=== PATIENT | male | born 1955 | race Caucasian/White ===

== ENCOUNTER 2018-09-14 13:21 | Inpatient (IN) | payer OTHER ==
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
[2018-09-14 14:05] LABS: PLATELET COUNT 233 10^3/uL (150-400)
--- NOTE | 2018-09-14 14:18 | CPEKG ---
Test Reason : OPEN Blood Pressure : / mmHG Vent. Rate : 090 BPM Atrial Rate : 090 BPM P-R Int : 150 ms QRS Dur : 106 ms QT Int : 358 ms P-R-T Axes : 063 047 016 degrees QTc Int : 438 ms Sinus rhythm Confirmed by Noemy Baum ([id number]) on 09/14/2018 2:18:12 PM Referred By: Confirmed By:Noemy Baum
[2018-09-14] MEDS ORDERED: ceFAZolin 2 GM/DEXTROSE 100 ML IV ONE (14:48)
[2018-09-14] MEDS ORDERED: oxyCODONE IR 5 MG TAB PO PRN (14:48)
[2018-09-14] MEDS ORDERED: HEPARIN 10,000 UNIT/10 ML MDV (1,000 UNIT/ML) IVP ONE (14:48)
[2018-09-14] MEDS ORDERED: ONDANSETRON DISINTEGRATING 4 MG TAB PO PRN (14:48)
[2018-09-14] MEDS ORDERED: ONDANSETRON 4 MG/2 ML VIAL IVP PRN (14:48)
[2018-09-14] MEDS ORDERED: HEPARIN/DEXTROSE 500 ML IV ONE (14:48)
[2018-09-14] MEDS ORDERED: ACETAMINOPHEN 325 MG TAB PO PRN (14:48)
[2018-09-14] MEDS ORDERED: CEFAZOLIN 1 GM/DEXTROSE/50 ML BAG IV ONE (14:55)
[2018-09-14 15:03] LABS: INR 0.9 (0.83-1.16); PROTIME(PATIENT) 12.4 SEC (12.0-15.0)
--- NOTE | 2018-09-14 15:03 | PDGENHP ---
History and Physical - Chief Complaint L Leg Swelling - History of Present Illness Vinod Hoang is a 63 yo male with a PMHx of tobacco abuse, alcohol abuse who presents to [facility] for LLE swelling. He reports that swelling in LLE started approximately 4 days ago. He denies any travel but does state that he spends most time in his chair at home. He also reports he believes he scraped the lateral side of his L calf a few days ago. He has had increased warmth and redness in that area. He denies any chest pain, shortness of breath, hemoptysis , f/c, d/c, n/v. History Information - Allergies/Home Medication List Allergies/Adverse Reactions: No Known Allergies Allergy (Unverified 01/25/10 11:03) Home Medications: Marijuana 09/14/18 [Last Taken Unknown] I have personally reviewed and updated: family history, medical history, social history, surgical history - Past Medical History no pertinent PMH - Surgical History Reports: no pertinent surgical hx - Family History Positive for: non-pertinent Additional family history: No hx of DVTs in parents - Social History Smoking Status: Heavy smoker Alcohol Use: Heavy Review of Systems Review of Systems: ROS: 10pt was reviewed & negative except for what was stated in HPI & below Physical Exam Physical Exam: Temp Pulse Resp BP Pulse Ox 36.8 C 95 16 122/80 H 92 09/14/18 13:25 09/14/18 14:58 09/14/18 14:58 09/14/18 14:58 09/14/18 14:58 Constitutional: unkempt Eyes: PERRL Ears, Nose, Mouth, Throat: moist mucous membranes Cardiovascular: regular rate and rhythym, no murmur, rub, or gallop, edema (LLE 2+) Respiratory: no respiratory distress, clear to auscultation Gastrointestinal: soft, non-tender abdomen Genitourinary: no bladder tenderness Skin: warm, erythema Musculoskeletal: pain with ROM Neurologic: AAOx3 Psychiatric: interacting appropriately Lymph, Heme, Immunologic: No ecchymoses, No petechiae Lab Data & Imaging Review 09/14/18 13:45 09/14/18 13:45 WBC 10.69 10^3/uL (3.80-9.50) H 09/14/18 13:45 RBC 4.99 10^6/uL (4.40-6.38) 09/14/18 13:45 Hgb 17.4 g/dL (13.7-17.5) 09/14/18 13:45 Hct 51.5 % (40.0-51.0) H 09/14/18 13:45 MCV 103.2 fL (81.5-99.8) H 09/14/18 13:45 MCH 34.9 pg (27.9-34.1) H 09/14/18 13:45 MCHC 33.8 g/dL (32.4-36.7) 09/14/18 13:45 RDW 13.2 % (11.5-15.2) 09/14/18 13:45 Plt Count 233 10^3/uL (150-400) 09/14/18 13:45 MPV 9.4 fL (8.7-11.7) 09/14/18 13:45 Neut % (Auto) 68.5 % (39.3-74.2) 09/14/18 13:45 Lymph % (Auto) 18.6 % (15.0-45.0) 09/14/18 13:45 [place] % (Auto) 10.5 % (4.5-13.0) 09/14/18 13:45 Eos % (Auto) 1.3 % (0.6-7.6) 09/14/18 13:45 Baso % (Auto) 0.4 % (0.3-1.7) 09/14/18 13:45 Nucleat RBC Rel Count 0.0 % (0.0-0.2) 09/14/18 13:45 Absolute Neuts (auto) 7.33 10^3/uL (1.70-6.50) H 09/14/18 13:45 Absolute Lymphs (auto) 1.99 10^3/uL (1.00-3.00) 09/14/18 13:45 Absolute Monos (auto) 1.12 10^3/uL (0.30-0.80) H 09/14/18 13:45 Absolute Eos (auto) 0.14 10^3/uL (0.03-0.40) 09/14/18 13:45 Absolute Basos (auto) 0.04 10^3/uL (0.02-0.10) 09/14/18 13:45 Absolute Nucleated RBC 0.00 10^3/uL (0-0.01) 09/14/18 13:45 Immature Gran % 0.7 % (0.0-1.1) 09/14/18 13:45 Immature Gran # 0.07 10^3/uL (0.00-0.10) 09/14/18 13:45 Sodium 140 mEq/L (135-145) 09/14/18 13:45 Potassium 3.6 mEq/L (3.3-5.0) 09/14/18 13:45 Chloride 101 mEq/L (97-110) 09/14/18 13:45 Carbon Dioxide 29 mEq/l (22-31) 09/14/18 13:45 Anion Gap 10 mEq/L (6-14) 09/14/18 13:45 BUN 19 mg/dL (7-23) 09/14/18 13:45 Creatinine 0.6 mg/dL (0.7-1.3) L 09/14/18 13:45 Estimated GFR > 60 09/14/18 13:45 Glucose 97 mg/dL (70-100) 09/14/18 13:45 Calcium 9.2 mg/dL (8.5-10.4) 09/14/18 13:45 POC Troponin I 0.01 ng/mL (0.00-0.08) 09/14/18 13:27 Assessment & Plan Assessment: Deep vein thrombosis (DVT) of left lower extremity (Acute) - 4 days of LLE swelling, reports lifestyle is sedentary - LLE U/S shows intraluminal thrombus involving entire L leg extending from calf veins through popliteal, femoral, common femoral - Started on Heparin gtt in ED, will continue - Radiology to discuss with IR for possible thrombolysis given extensive nature of clot, will f/u recommendations - Plan to transition to Lovenox vs. oral AC pending IR intervention, clinical improvement Left leg cellulitis (Acute) - Reports he scarped leg, area of increased erythema on lateral aspect of L calf - Denies f/c, WBC 10.69 on admission - Started on Ancef in ED, will continue for now - Blood cultures collected in ED, f/u results - Can likely transition to PO abx in next 24-48 hours if clinical improvement Alcohol Abuse - Reports drinking 2, 40 ounce beers daily, has not drank in 3 days - Will order CIWA protocol given alcohol hx Tobacco Abuse - Smokes a pipe and 2 cigarettes daily - Patient does not want nicotine replacement at this time FEN: PRN, NPO pending IR DVT PPx: Heparin gtt Code: FULL Dispo: Admit to Medicine
[2018-09-14] MEDS ORDERED: FLUMAZENIL 0.5 MG/5 ML MDV IVP PRN ×2 (15:39→17:47)
[2018-09-14] MEDS ORDERED: LORazepam 1 MG TAB PO PRN (15:39)
--- NOTE | 2018-09-14 16:27 | PDMN ---
Medical Necessity Medical necessity: MCG M350 DVT of LE and M70 Cellulitis: 63 yo w/ acute DVT LLE , U/S shows intraluminal thrombus involving entire L leg extending from calf veins through popliteal, femoral, common femoral. heparin gtt started, IR consulted for possible thrombolysis given extensive nature of clot. Pt w/ acute LLE cellulitis, elevated WBC, IV antibx started, BC pending. Hx etoh and tobacco abuse. CIWA protocol ordered as precaution. NPO status for now. IP status anticipate>2MN for ongoing monitoring and tx of above.
[2018-09-14] MEDS ORDERED: HEPARIN/DEXTROSE 500 ML IV SCH ×3 (17:00→18:15)
[2018-09-14] MEDS ORDERED: HEPARIN 10,000 UNIT/10 ML MDV (1,000 UNIT/ML) IVP PRN ×2 (17:13→17:47)
--- NOTE | 2018-09-14 17:41 | PDPROPOC ---
Sedation Plan of Care Sedation Plan of Care: vital signs stable, mental status noted, patient educated of risks, benefits, alternatives, patient can tolerate sedation ASA Classification: ASA 3 Planned drugs: fentanyl, midazolam Mallampati Score: Class 1 Mallampati Reference Image: Patient passed 3-3-2 rule?: Yes
[2018-09-14] MEDS ORDERED: NALOXONE HCL 0.4 MG/ML INJ ONE (17:42)
--- NOTE | 2018-09-14 17:42 | PDHPUP ---
History & Physical Update H&P update statement: This history and physical update is based on an assessment of the patient which was completed after admission or registration (within 24 hours), but prior to the surgery/procedure. Massive LLE DVT, plan for catheter directed thrombolysis. H&P update: H&P reviewed & patient examined, no change in patient's condition since H&P completed H&P changes: No contraindications to anticoagulation
[2018-09-14] MEDS ORDERED: MIDAZOLAM 2 MG/2 ML VIAL ONE (17:43)
[2018-09-14] MEDS ORDERED: fentaNYL 100 MCG/2 ML INJ ONE ×2 (17:43)
[2018-09-14] MEDS ORDERED: NALOXONE HCL 0.4 MG/ML INJ IVP PRN (17:47)
[2018-09-14] MEDS ORDERED: PROTAMINE SULFATE 50 MG/5 ML VIAL IVP PRN (17:47)
[2018-09-14] MEDS ORDERED: fentaNYL 100 MCG/2 ML INJ IVP PRN (17:47)
[2018-09-14] MEDS ORDERED: MIDAZOLAM 2 MG/2 ML VIAL IVP PRN (17:47)
[2018-09-14] MEDS ORDERED: GLUCAGON HCL 1 MG VIAL IVP PRN (17:47)
[2018-09-14] MEDS ORDERED: MEPERIDINE 25 MG/ML SYR IVP PRN (17:47)
[2018-09-14] MEDS ORDERED: ALTEPLASE 2 MG VIAL IVP PRN (17:47)
[2018-09-14] MEDS ORDERED: IOPAMIDOL (ISOVUE-300) 100 ML BTL ONE (17:57)
[2018-09-14] MEDS ORDERED: ALTEPLASE 5 MG in NS 100 ML IV ONE (18:15)
--- NOTE | 2018-09-14 18:19 | PDRADPN ---
Radiology Procedure Note Date of Procedure: 09/14/18 Radiologist: Chris Rutherford Anesthesia: IV Sedation Pre-op Diagnosis: LLE DVT Post-op Diagnosis: LLE DVT Indication: Massive DVT, free floating thrombus Procedure: Catheter directed thrombolysis/EKOS ultrasound assisted Finding(s): Iliofemoral DVT with initiation of EKOS thrombolysis Inf/Abcess present in the surg proc area at time of surgery?: No
[2018-09-14] MEDS: THIAMINE HCL 500 MG in NS 100 ML IV SCH (19:09)
[2018-09-14] MEDS: ceFAZolin 2 GM/DEXTROSE 100 ML IV SCH (23:10)
[2018-09-15] MEDS: ALTEPLASE IV SCH ×3 (00:31→13:41)
[2018-09-15] MEDS: NS IV SCH ×3 (00:31→13:41)
[2018-09-15 01:30] LABS: PLATELET COUNT 168 10^3/uL (150-400)
[2018-09-15] MEDS: ceFAZolin 2 GM/DEXTROSE 100 ML IV SCH ×3 (06:10→21:54)
[2018-09-15] MEDS: THIAMINE HCL 500 MG in NS 100 ML IV SCH (09:51)
--- NOTE | 2018-09-15 16:33 | ASMTCMCOM ---
CM Note CM Note Notes: 63yo male admitted for DVT, L leg cellulitis. He has a Hx of tobacco use, ETOH abuse. He also uses THC. He has been interested in going home, concerned financially. Was found that his income is to high for Medicaid but Financial Services can help him apply for CICP as a seconary ins. Patient lives alone. 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 He reported to [employer] that he was also depressed. Therapies to eval for discharge needs. Date Signed: 09/15/2018 04:32 PM Electronically Signed By:Yulia Quinonez LCSW
--- NOTE | 2018-09-15 16:45 | ASDISCHSUM ---
Discharge Information Plan Status:Home with No Needs Medically Cleared to Leave:09/15/2018 Discharge Date:09/15/2018 CM D/C Disposition:Home, Routine, Self-Care ADT D/C Disposition:Home, Routine, Self-Care Projected Discharge Date:09/15/2018 06:00 PM Transportation at D/C: Discharge Delay Reason: Follow-Up Date:09/15/2018 06:00 PM Discharge Slot:2 - 12:01 pm - 18:00 pm Final Diagnosis:DVT, Cellulitis Placement Information Patient Contact Information Contact Name:ALICIA Relationship:Friend Address: Work Phone: City: [facility] Phone: [email or web address] Code: Email: Financial Information Financial Class:Medicare Primary Plan Desc:MEDICARE INPATIENT Primary Plan Number:[id number] Secondary Plan Desc: Secondary Plan Number: Assessment Information LACE LACE Length of stay for Answers: Less than 1 day current admission Acuity / Level of Answers: Yes Care: Did the patient have an inpatient admission? Comorbidities - select Answers: Diabetes (uncontrolled or all that apply controlled) # of Emergency department Answers: 1-2 visits in the last 6 months Social determinants Answers: History of substance abuse (ETOH, street drugs, prescription drugs, etc.) Score: 8 Date Signed: 09/15/2018 04:45 PM Electronically Signed By:Yulia Quinonez LCSW [facility] CM Progress Note CM Note CM Note Notes: 63yo male admitted for DVT, L leg cellulitis. He has a Hx of tobacco use, ETOH abuse. He also uses THC. He has been interested in going home, concerned financially. Was found that his income is to high for Medicaid but Financial Services can help him apply for CICP as a seconary ins. Patient lives alone. 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 He reported to that he was also depressed. Therapies to eval for discharge needs. Date Signed: 09/15/2018 04:32 PM Electronically Signed By:Yulia Quinonez LCSW Case Management Discharge Plan Note Case Management Discharge Discharge Order Complete? Answers: Yes Patient to Obtain Answers: Independently Medications Transport will Pick (Date 09/15/2018 06:00 PM & Time) Discharge Comments Notes: Patient wants to discharge. Therapies had not yet evaluated. Date Signed: 09/15/2018 04:44 PM Electronically Signed By:Yulia Quinonez LCSW Intervention Information
[2018-09-15] MEDS ORDERED: HEPARIN 10,000 UNIT/10 ML MDV (1,000 UNIT/ML) IVP PRN (18:18)
[2018-09-15] MEDS ORDERED: GLUCAGON HCL 1 MG VIAL IVP PRN (18:18)
[2018-09-15] MEDS ORDERED: FLUMAZENIL 0.5 MG/5 ML MDV IVP PRN (18:18)
[2018-09-15] MEDS ORDERED: MIDAZOLAM 2 MG/2 ML VIAL IVP PRN (18:18)
[2018-09-15] MEDS ORDERED: MEPERIDINE 25 MG/ML SYR IVP PRN (18:18)
[2018-09-15] MEDS ORDERED: PROTAMINE SULFATE 50 MG/5 ML VIAL IVP PRN (18:18)
[2018-09-15] MEDS ORDERED: NALOXONE HCL 0.4 MG/ML INJ IVP PRN (18:18)
[2018-09-15] MEDS ORDERED: ALTEPLASE 2 MG VIAL IVP PRN (18:18)
[2018-09-15] MEDS ORDERED: fentaNYL 100 MCG/2 ML INJ IVP PRN (18:18)
[2018-09-15] MEDS ORDERED: fentaNYL 100 MCG/2 ML INJ ONE (18:26)
[2018-09-15] MEDS ORDERED: MIDAZOLAM 2 MG/2 ML VIAL ONE (18:27)
[2018-09-15] MEDS ORDERED: IOPAMIDOL (ISOVUE-300) 100 ML BTL ONE (19:17)
[2018-09-15] MEDS: APIXABAN 5 MG TAB PO SCH (20:38)
[2018-09-15 20:45] LABS: PLATELET COUNT 156 10^3/uL (150-400)
[2018-09-15 20:50] LABS: INR 1.22 (0.83-1.16); PROTIME(PATIENT) 15.6 SEC (12.0-15.0)
--- NOTE | 2018-09-15 23:56 | HOSPPROG ---
Hospitalist Progress Note Assessment/Plan: Assessment: 63 yo M p/w extensive LLE DVT Plan: # DVT. POA, acute, new problem, further w/u indicated. LLE, IR recommended EKOS given extent -d/w Dr. Galdamez on team rounds, agreed on ongoing EKOS today, plan for repeat IR venogram this evening -EKG w/o e/o ischemia, TWI III (personally interpreted) and denies chest pain, saturating well on RA -patient w/o PCP and limited ability to follow-up, recommend eliquis -discussed bleed risks/signs w/ patient, he feels comfortable w/ eliquis and outpt f/u Dr. Bullock -no e/o cellulitis on LLE, stopped Ancef, repeat WBC in AM (10,500) # Alcoholism. Encouraged sobriety, discussed increased bleed risk Diet. Regular PPx. High risk, eliquis when off EKOS Code. Full Dispo. ADD 09/16 s/p IR venogram/possible angioplasty Subjective: less swelling in leg today Objective: Vital Signs Temp Pulse Resp BP Pulse Ox 36.6 C 63 20 113/71 97 09/14/18 22:14 09/15/18 22:00 09/15/18 22:00 09/15/18 22:00 09/15/18 22:00 Laboratory Results 09/15/18 20:30 09/15/18 20:30 09/14/18 09/15/18 09/16/18 05:59 05:59 05:59 Intake Total 1238 232 Output Total 700 500 Balance 538 -268 PT 15.6 SEC (12.0-15.0) H 09/15/18 20:30 INR 1.22 (0.83-1.16) H 09/15/18 20:30 - Pending Discharge Pending Discharge Within 24 Hours: Yes Pending Discharge Date: 09/17/18 Pending Discharge Time: 11:00 - Physical Exam Constitutional: no apparent distress, appears nourished, not in pain, No uncomfortable Cardiovascular: regular rate and rhythym, no murmur, rub, or gallop, edema ( trace LLE) Respiratory: no respiratory distress, no rales or rhonchi, clear to auscultation Gastrointestinal: normoactive bowel sounds, soft, non-tender abdomen, no palpable masses Skin: warm, No abrasion, No erythema (at EKOS catheter site), No induration Neurologic: AAOx3, facial droop, other (no tremulousness bilat UE), No asterixes Psychiatric: interacting appropriately, not anxious, not encephalopathic, thought process linear, other (poor health literacy) ICD10 Worksheet Patient Problems: Problems Problem Status Onset Deep vein thrombosis (DVT) of left lower extremity Acute Left leg cellulitis Acute
[2018-09-16 03:52] LABS: PLATELET COUNT 169 10^3/uL (150-400)
[2018-09-16] MEDS: APIXABAN 5 MG TAB PO SCH (08:19)
[2018-09-16] MEDS: THIAMINE HCL 500 MG in NS 100 ML IV SCH (08:19)
[2018-09-16 08:24] VITALS: BP 116/81
--- NOTE | 2018-09-16 21:26 | PDDCSUM ---
Discharge Summary Discharge Summary: Date of admission: 09/14/18 Date of discharge: 09/16/18 Discharge diagnoses: 1. DVT, POA 2. Alcoholism Procedures: Catheter directed lysis, EKOS, venogram Consults: IR Dr. Rutherford, Critical Care Exam: AAOx3, mildly anxious, 1+ LLE edema w/o tenderness, no erythema at cath site, lungs CTA bilat Hospital Course: Patient presented w/ extensive LLE DVT, deemed appropriate for EKOS via IR of the iliofemoral vein, which resulted in resolution of clot. Patient was transitioned to [facility] w/o complication, and discharged on starter pack w/ free 30-day card. He was advised to f/u Dr. Bullock for ongoing care and LE re- eval. He was given thigh-high TEDs and advised to elevate his LE. He was also advised to avoid EtOH/NSAIDs. The etiology of his DVT is unclear, and 1 yr of anticoagulation is indicated, with outpatient reassessment at that time. Discharge medications: please see DC med rec sheet in chart; eliquis starter pack Discharge instructions: please schedule outpatient f/u at [facility] next week.
[2018-09-17] MEDS ORDERED: THIAMINE HCL 100 MG TAB PO SCH (09:00)
== END 2018-09-16 09:36 | disposition home or self-care (01) | DRG 254 ==
LOC: EDUNIT# → F3E 15:33 → F2N 17:35
PROVIDERS: ADMIT Internal Medicine; ATTEND Internal Medicine
PROC: 3E03317 Introduction of Other Thrombolytic into Peripheral Vein, Percutaneous Approach (ICD-10-PCS; 2018-09-14)
PROC: 067D3ZZ Dilation of Left Common Iliac Vein, Percutaneous Approach (ICD-10-PCS; principal; 2018-09-15)
DX: I82.412 Acute embolism and thrombosis of left femoral vein (principal); I82.422 Acute embolism and thrombosis of left iliac vein; F10.20 Alcohol dependence, uncomplicated; Z72.0 Tobacco use
CPT/HCPCS: 84484-PO; 97161-GP; C1725; C1757; C1769; C1894; C2628; G8978-GP-CI; G8979-GP-CI; G8980-GP-CI; J0690; J1644; J2250; J2310; J2997; J3010; J3411; Q9967